=== PATIENT | female | born 1955 | race Caucasian/White ===

== ENCOUNTER → 2018-04-18 10:13 | Outpatient (CLI) | payer BC, MEDICARE, SELFPAY ==
[2018-04-18 10:45] LABS: Basophils % 0.4 % (0.1-2.0); Eosinophils # 0.1 K/mm3 (0.0-0.4); Eosinophils % 1.2 % (0.1-12.0); Hemoglobin 14.1 g/dL (12.2-16.2); Lymphocytes # 1.3 K/mm3 (0.7-4.5); Lymphocytes % 19.5 % (10-50); Mean Corpuscular HGB Conc 32.9 g/dL (31.8-35.4); Mean Corpuscular Hemoglobin 31.4 pg (27.0-31.2); Mean Corpuscular Volume 95.4 fl (81-99); Monocytes # 0.4 K/mm3 (0.1-1.0); Monocytes % 5.5 % (1.7-9.3); Neutrophils # 4.8 K/mm3 (1.8-7.8); Neutrophils % 73.4 % (37.0-80.0); Platelet Count 285 K/mm3 (142-424); Red Cell Distribution Width 13.8 % (11.5-17.5); White Blood Count 6.6 K/mm3 (4.8-10.8)
--- NOTE | 2018-04-18 11:08 | CT_ITS ---
CT head/brain w con HISTORY: Left-sided weakness for one month, the a ITS.REASON: ISCHEMIC STROKE ORDERING PHYSICIAN: Freddy Jackson MD PATIENT AGE: 63 years COMPARISON: None TECHNIQUE: Axial images obtained following the intravenous administration 100 mL of Isovue 300 contrast. Brain and bone windows reviewed. All CT scans at the facility use one or more dose reduction, viz: automated exposure control, ma/kV adjustment per patient size (including targeted exams where dose is matched to indication, i.e. head), or iterative reconstruction technique. FINDINGS: Unenhanced exam was not performed. Only post enhanced exam was performed. Small areas of hemorrhage could therefore be obscured and not detected on the post enhanced exam only. No enhancing lesions are evident. No areas of territorial infarction apparent. No midline shift, mass effect or hydrocephalus. No obvious intra or extra-axial hemorrhage. No calvarial abnormality. No sinus air-fluid level or mastoid effusion IMPRESSION: No acute intracranial findings on this post enhanced exam
[2018-04-18 11:26] LABS: Anion Gap 11.4 mEq/L (5-15); Blood Urea Nitrogen 11 mg/dL (7-18); Carbon Dioxide 28 mmol/L (21.0-32.0); Chloride 99 mmol/L (98-107); Creatinine,Serum 0.77 mg/dL (0.55-1.02); Estimated Glomerular Filt Rate 76 ml/min (>60); GFR (African American) 92 ML/MIN (>60); Glucose 101 mg/dL (74-106); Potassium 4.4 mmoL/L (3.5-5.1); Sodium 134 mmol/L (136-145)
[2018-04-18 11:27] LABS: Alanine Aminotransferase 28 U/L (12-78); Albumin Level 4.2 gm/dL (3.4-5.0); Albumin/Globulin Ratio 1.4 (1.1-1.8); Alkaline Phosphatase 74 U/L (46-116); Aspartate Amino Transferase 15 U/L (15-37); Bilirubin,Total 0.7 mg/dL (0.2-1.0); Calcium 8.7 mg/dL (8.5-10.1); Chol/HDL Ratio 2.4 (1-3.5); Cholesterol 141 mg/dL (140-200); Globulin 3.1 gm/dl (1.3-3.2); HDL Cholesterol 59 mg/dL (29-89); LDL Cholesterol 68 mg/dL (0-130); Total Protein,Serum 7.3 gm/dL (6.4-8.2); Triglycerides 72 mg/dL (30-200); VLDL Cholesterol 14 mg/dL (0-40)
[2018-04-18 11:28] LABS: Thyroid Stimulating Hormone 0.72 uIU/ml (0.358-3.740); Triiodothryronine (T3) Uptake 38 % (31-39)
[2018-04-18 11:35] LABS: Free Thyroxine Index 3.2 ug/dL (5.93-13.13); T4 (Thyroxine) 8.4 ug/dl (4.7-13.3)
[2018-04-18 12:20] LABS: Erythrocyte Sedimentation Rate 6 mm/hr (0-30)
[2018-04-19 21:55] LABS: Vitamin B12 551 pg/mL (232-1245); Vitamin D 25 Hydroxy 15.4 ng/mL (30.0-100.0)
== END ==
PROVIDERS: Visit Provider Internal Medicine Adolescent Medicine
DX: I63.9 Cerebral infarction, unspecified (principal); I42.9 Cardiomyopathy, unspecified
CPT/HCPCS: 36415; 70460; 80053; 80061; 82607; 82652; 84436; 84443; 84479; 85025; 85651; Q9967

== ENCOUNTER → 2018-09-24 12:53 | Outpatient (CLI) | payer BC, MEDICARE, SELFPAY ==
[2018-09-24 13:16] LABS: Basophils % 0.5 % (0.1-2.0); Eosinophils # 0.1 K/mm3 (0.0-0.4); Eosinophils % 1.4 % (0.1-12.0); Hematocrit 37.1 % (37.0-47.0); Hemoglobin 12.4 g/dL (12.2-16.2); Lymphocytes # 1.2 K/mm3 (0.7-4.5); Mean Corpuscular HGB Conc 33.4 g/dL (31.8-35.4); Mean Corpuscular Hemoglobin 29.4 pg (27.0-31.2); Mean Platelet Volume 6.8 fl (7.4-10.4); Monocytes # 0.3 K/mm3 (0.1-1.0); Neutrophils # 2.9 K/mm3 (1.8-7.8); Neutrophils % 65.1 % (37.0-80.0); Platelet Count 263 K/mm3 (142-424); Red Blood Count 4.21 M/mm3 (4.20-5.40); Red Cell Distribution Width 13.7 % (11.5-17.5); White Blood Count 4.5 K/mm3 (4.8-10.8)
[2018-09-24 14:39] LABS: Alanine Aminotransferase 28 U/L (12-78); Albumin Level 4.2 gm/dL (3.4-5.0); Albumin/Globulin Ratio 1.4 (1.1-1.8); Alkaline Phosphatase 61 U/L (46-116); Anion Gap 13.1 mEq/L (5-15); Aspartate Amino Transferase 17 U/L (15-37); Bilirubin,Total 0.5 mg/dL (0.2-1.0); Blood Urea Nitrogen 10 mg/dL (7-18); Calcium 8.9 mg/dL (8.5-10.1); Carbon Dioxide 26 mmol/L (21.0-32.0); Chloride 98 mmol/L (98-107); Chol/HDL Ratio 4.1 (1-3.5); Cholesterol 271 mg/dL (140-200); Creatine Kinase 100 U/L (26-192); Creatinine,Serum 0.67 mg/dL (0.55-1.02); Estimated Glomerular Filt Rate 89 ml/min (>60); Free Thyroxine Index 2.9 ug/dL (5.93-13.13); GFR (African American) 108 ML/MIN (>60); Globulin 2.9 gm/dl (1.3-3.2); Glucose 97 mg/dL (74-106); HDL Cholesterol 66 mg/dL (29-89); LDL Cholesterol 187 mg/dL (0-130); Magnesium 2.1 mg/dL (1.4-2.2); Potassium 4.1 mmoL/L (3.5-5.1); Sodium 133 mmol/L (136-145); T4 (Thyroxine) 8.4 ug/dl (4.7-13.3); Total Protein,Serum 7.1 gm/dL (6.4-8.2); Triglycerides 92 mg/dL (30-200); Triiodothryronine (T3) Uptake 34 % (31-39); VLDL Cholesterol 18 mg/dL (0-40)
[2018-09-24 16:23] LABS: Hemoglobin A1C 5.1 % (0.0-7.0)
[2018-09-26 17:48] LABS: Vitamin D 25 Hydroxy 46.7 ng/mL (30.0-100.0)
[2018-09-26 17:50] LABS: Vitamin B12 368 pg/mL (232-1245)
== END ==
PROVIDERS: Visit Provider Internal Medicine Adolescent Medicine
DX: J45.20 Mild intermittent asthma, uncomplicated (principal); I10 Essential (primary) hypertension; M79.10 Myalgia, unspecified site; Z86.39 Personal history of other endocrine, nutritional and metabolic disease
CPT/HCPCS: 36415; 80053; 80061; 82550; 82607; 82652; 83036; 83735; 84436; 84443; 84479; 85025

== ENCOUNTER → 2018-10-22 13:28 | Outpatient (CLI) | payer BC, MEDICARE, SELFPAY ==
[2018-10-22 15:41] LABS: Free Thyroxine Index 2.8 ug/dL (5.93-13.13); Thyroid Stimulating Hormone 0.86 uIU/ml (0.358-3.740); Triiodothryronine (T3) Uptake 35 % (31-39)
[2018-10-24 17:12] LABS: Thyroglobulin Level <1.0 IU/mL (0.0-0.9); Thyroid Peroxidase Antibodies 6 IU/mL (0-34)
== END ==
PROVIDERS: Visit Provider Internal Medicine Adolescent Medicine
DX: L65.9 Nonscarring hair loss, unspecified (principal)
CPT/HCPCS: 36415; 84436; 84443; 84479; 86376; 86800

== ENCOUNTER → 2018-12-17 17:12 | Outpatient (CLI) | payer BC, MEDICARE, SELFPAY ==
--- NOTE | 2018-12-17 17:26 | XR_ITS ---
PROCEDURE: XR HIP BI W PEL1V CLINICAL INDICATION: Low back pain, hip pain COMPARISON: No exams were available for comparison FINDINGS: No fracture or dislocation. No lytic or blastic change. Minimal bony hypertrophic changes are present at the greater trochanter on the left. No significant degenerative change IMPRESSION: Negative pelvis and bilateral hips Dictated by: Misbah Erwin MD 12/17/2018 18:36 <Electronically signed by Misbah Erwin MD in [place]> 12/17/2018 18:36
--- NOTE | 2018-12-17 17:26 | XR_ITS ---
PROCEDURE: XR LUMBAR SPINE MIN 4V CLINICAL INDICATION: Low back pain COMPARISON: No exams were available for comparison FINDINGS: Minimal thoracolumbar curvature convex right. Prior posterior fusion with interpedicular screws and connecting rods at L4 and L5 with interspace device at L4-L5. Mild degenerative disc disease L1-L2 L2-L3 L3-L4 and L5-S1. 8 mm anterolisthesis of L5 on S1. No acute fracture. No lytic or blastic change. There are facet arthritic changes at L5-S1 incidental vascular calcification noted of the aorta. IMPRESSION: Postsurgical and degenerative changes as described above Dictated by: Misbah Erwin MD 12/17/2018 18:37 <Electronically signed by Misbah Erwin MD in [facility]> 12/17/2018 18:37
--- NOTE | 2018-12-17 17:27 | XR_ITS ---
PROCEDURE: XR SACROILIAC JOINT BI MIN 3V CLINICAL INDICATION: FALL BACK IN OCTOBER C/O RT HIP PAIN Pain COMPARISON: No exams were available for comparison FINDINGS: The SI joints have an unremarkable appearance. No fusion lysis or sclerosis evident. No significant degenerative change IMPRESSION: . unremarkable SI joints Dictated by: Misbah Erwin MD 12/17/2018 18:33 <Electronically signed by Misbah Erwin MD in [facility]> 12/17/2018 18:33
== END ==
PROVIDERS: PCP Internal Medicine Adolescent Medicine; Visit Provider Internal Medicine Adolescent Medicine
DX: M53.3 Sacrococcygeal disorders, not elsewhere classified (principal); M25.552 Pain in left hip; M25.551 Pain in right hip; M54.5 Low back pain
CPT/HCPCS: 72110; 72202; 73521

== ENCOUNTER → 2018-12-29 13:31 | Outpatient (POV) | payer BC, MEDICARE, SELFPAY ==
[2018-12-29 14:11] VITALS: BP 169/85; PULSE 85; RESP 18; O2SAT 98; BMI 33.8
--- NOTE | 2018-12-30 13:00 | [facility]H.PMCON ---
Assessment and Plan (1) Degenerative joint disease (DJD) of lumbar spine Current visit: Yes Status: Acute Category: Medical Code(s): M47.816 - Spondylosis without myelopathy or radiculopathy, lumbar region - Assessment and plan all Dx Assessment and Plan for all problems:: We will schedule an L4-L5 lumbar epidural steroid injection given the patient's symptomology I believe it would be beneficial. I will follow-up with the patient after injection reassess her symptoms at that time she is not on any anticoagulation therapy or has any active infections. Patient's been instructed to call the office if she has any issues prior to her next appointment. Dr. Louie has reviewed this note and agrees with this plan of care. This note was dictated using voice recognition software and may contain errors or omissions HPI - Data of Consult Consult date: 12/29/18 Requesting Physician: Brigitte Taylor APRN Primary Care Provider: Freddy Jackson MD - Consult Narrative Reason for consult: Back pain History of present illness: Ms. Cedillo is a 63 year old female who presents for consultation in regards to her neck and low back pain. Patient states that lying flat and turning her head side to side increase her pain. She has numbness and tingling in her right leg. Patient had chiropractic therapy and physical therapy with moderate relief. She has tried and failed Motrin/baclofen/naproxen tried sertraline. Patient is interested in injective therapy. Patient rates her pain a 5 out of 10 today. CC: Brigitte Taylor APRN [facility] History I have reviewed the patient's past medical history: Yes Medical History: Reports:: Cardiomyopathy, Congestive Heart Failure, Diabetes Mellitus Type 2, Internal Pacemaker, Palpitations Denies:: Cancer, MRSA *Have you ever received a pneumonia vaccine?: Yes *Have you received a flu vaccine this season?: Yes Other Surgeries: Yes: Hysterectomy-Total, Pacemaker Amputation: No - *Social History Smoking Status: Never smoker Alcohol Intake: never *Occupational Status:: other Housing: house Household Members: other *Travel in the last 8 weeks: None Family Hx:: Cancer, Diabetes, Stroke Review of Systems - Review of Systems ROS General: no recent weight change, no fever, no sleep disturbances Respiratory: no cough, no shortness of air, no recurring pulmonary infections Cardiovascular/Peripheral Vascular: No chest pain, No palpitations, no edema, no shortness of breath. Gastrointestinal: no incontinence, normal bowel movements reported Genitourinary: no incontinence Musculoskeletal: Back pain, leg pain Psychiatric: normal mood/ affect Neurological: [denies weakness in extremities], [denies balance issues] Objective Vital signs: Pulse Resp BP Pulse Ox 85 18 169/85 H 98 12/29/18 14:11 12/29/18 14:11 12/29/18 14:11 12/29/18 14:11 Narrative: Physical Exam General: Alert and oriented x3, no acute distress, pleasant and cooperative, [on room air] Lungs: Resps E/U, Symmetrical chest expansion, Eyes: PERRL Musculoskeletal: Flexion and extension of lumbar spine somewhat guarded secondary to pain, deep tendon reflexes normal, strength in upper and lower extremities [5/5], antalgic gait noted Neurological: speech clear, switchboard manager equal, no gross sensory deficits Opioid Risk Tool - Opioid Risk Tool-Female Family hx alcohol abuse: N Family hx illegal drugs: N Family hx rx drug abuse: N Personal hx alcohol abuse: N Personal hx illegal drugs: N Personal hx rx drug abuse: N Age: 45+ Hx of sexual abuse: N Mental health issues-ADD,OCD,Bipolar, etc: N Hx of depression: Y Female Risk Score: 1
--- NOTE | 2018-12-30 13:03 | P.CONS_ITS ---
Assessment and Plan (1) Degenerative joint disease (DJD) of lumbar spine Current visit: Yes Status: Acute Category: Medical Code(s): M47.816 - Spondylosis without myelopathy or radiculopathy, lumbar region - Assessment and plan all Dx Assessment and Plan for all problems:: We will schedule an L4-L5 lumbar epidural steroid injection given the patient's symptomology I believe it would be beneficial. I will follow-up with the patient after injection reassess her symptoms at that time she is not on any anticoagulation therapy or has any active infections. Patient's been instructed to call the office if she has any issues prior to her next appointment. Dr. Louie has reviewed this note and agrees with this plan of care. This note was dictated using voice recognition software and may contain errors or omissions HPI - Data of Consult Consult date: 12/29/18 Requesting Physician: Brigitte Taylor APRN Primary Care Provider: Freddy Jackson MD - Consult Narrative Reason for consult: Back pain History of present illness: Ms. Cedillo is a 63 year old female who presents for consultation in regards to her neck and low back pain. Patient states that lying flat and turning her head side to side increase her pain. She has numbness and tingling in her right leg. Patient had chiropractic therapy and physical therapy with moderate relief. She has tried and failed Motrin/baclofen/naproxen tried sertraline. Patient is interested in injective therapy. Patient rates her pain a 5 out of 10 today. CC: Brigitte Taylor APRN [facility] History I have reviewed the patient's past medical history: Yes Medical History: Reports:: Cardiomyopathy, Congestive Heart Failure, Diabetes Mellitus Type 2, Internal Pacemaker, Palpitations Denies:: Cancer, MRSA *Have you ever received a pneumonia vaccine?: Yes *Have you received a flu vaccine this season?: Yes Other Surgeries: Yes: Hysterectomy-Total, Pacemaker Amputation: No - *Social History Smoking Status: Never smoker Alcohol Intake: never *Occupational Status:: other Housing: house Household Members: other *Travel in the last 8 weeks: None Family Hx:: Cancer, Diabetes, Stroke Review of Systems - Review of Systems ROS General: no recent weight change, no fever, no sleep disturbances Respiratory: no cough, no shortness of air, no recurring pulmonary infections Cardiovascular/Peripheral Vascular: No chest pain, No palpitations, no edema, no shortness of breath. Gastrointestinal: no incontinence, normal bowel movements reported Genitourinary: no incontinence Musculoskeletal: Back pain, leg pain Psychiatric: normal mood/ affect Neurological: [denies weakness in extremities], [denies balance issues] Objective Vital signs: Pulse Resp BP Pulse Ox 85 18 169/85 H 98 12/29/18 14:11 12/29/18 14:11 12/29/18 14:11 12/29/18 14:11 Narrative: Physical Exam General: Alert and oriented x3, no acute distress, pleasant and cooperative, [on room air] Lungs: Resps E/U, Symmetrical chest expansion, Eyes: PERRL Musculoskeletal: Flexion and extension of lumbar spine somewhat guarded secondary to pain, deep tendon reflexes normal, strength in upper and lower extremities [5/5], antalgic gait noted Neurological: speech clear, helicopter technician equal, no gross sensory deficits Opioid Risk Tool - Opioid Risk Tool-Female Family hx alcohol abuse: N Family hx i
== END ==
PROVIDERS: PCP Internal Medicine Adolescent Medicine; Visit Provider Clinical Nurse Specialist Family Health
DX: M47.816 Spondylosis without myelopathy or radiculopathy, lumbar region (principal)
CPT/HCPCS: 99202

== ENCOUNTER → 2019-03-25 17:00 | Outpatient (CLI) | payer BC, MEDICARE, SELFPAY ==
[2019-03-25 17:22] LABS: Basophils % 0.5 % (0.1-2.0); Eosinophils # 0.2 K/mm3 (0.0-0.4); Eosinophils % 3.1 % (0.1-12.0); Hematocrit 40.6 % (37.0-47.0); Hemoglobin 13.3 g/dL (12.2-16.2); Lymphocytes # 1.6 K/mm3 (0.7-4.5); Lymphocytes % 33.6 % (10-50); Mean Corpuscular HGB Conc 32.7 g/dL (31.8-35.4); Mean Corpuscular Hemoglobin 31.1 pg (27.0-31.2); Mean Platelet Volume 8.1 fl (7.4-10.4); Monocytes # 0.3 K/mm3 (0.1-1.0); Monocytes % 6.8 % (1.7-9.3); Neutrophils # 2.7 K/mm3 (1.8-7.8); Neutrophils % 56.1 % (37.0-80.0); Platelet Count 283 K/mm3 (142-424); Red Blood Count 4.27 M/mm3 (4.20-5.40); Red Cell Distribution Width 13.7 % (11.5-17.5); White Blood Count 4.7 K/mm3 (4.8-10.8)
[2019-03-25 19:54] LABS: Alanine Aminotransferase 23 U/L (12-78); Albumin Level 4.2 gm/dL (3.4-5.0); Albumin/Globulin Ratio 1.4 (1.1-1.8); Alkaline Phosphatase 65 U/L (46-116); Anion Gap 12.8 mEq/L (5-15); Aspartate Amino Transferase 11 U/L (15-37); Bilirubin,Total 0.3 mg/dL (0.2-1.0); Blood Urea Nitrogen 10 mg/dL (7-18); Calcium 8.7 mg/dL (8.5-10.1); Carbon Dioxide 29 mmol/L (21.0-32.0); Chloride 105 mmol/L (98-107); Chol/HDL Ratio 4.2 (1-3.5); Cholesterol 268 mg/dL (140-200); Creatinine,Serum 0.62 mg/dL (0.55-1.02); Estimated Glomerular Filt Rate 98 ml/min (>60); Ferritin 16 ng/mL (8-388); GFR (African American) 118 ML/MIN (>60); Glucose 85 mg/dL (74-106); HDL Cholesterol 64 mg/dL (29-89); LDL Cholesterol 179 mg/dL (0-130); Potassium 3.8 mmoL/L (3.5-5.1); Sodium 143 mmol/L (136-145); Total Protein,Serum 7.2 gm/dL (6.4-8.2); Triglycerides 123 mg/dL (30-200); VLDL Cholesterol 25 mg/dL (0-40)
[2019-03-27 11:39] LABS: Vitamin D 25 Hydroxy 25.8 ng/mL (30.0-100.0)
== END ==
PROVIDERS: Visit Provider Internal Medicine Adolescent Medicine
DX: E78.5 Hyperlipidemia, unspecified (principal); E55.9 Vitamin D deficiency, unspecified; G25.81 Restless legs syndrome
CPT/HCPCS: 36415; 80053; 80061; 82652; 82728; 85025

== ENCOUNTER → 2019-05-26 13:02 | Outpatient (POV) | payer BC, MEDICARE, SELFPAY | PROVIDERS: Visit Provider Dermatology | DX: Z00.00 Encounter for general adult medical examination without abnormal findings (principal) ==

== ENCOUNTER → 2019-11-04 11:24 | Outpatient (CLI) | payer BC, MEDICARE, SELFPAY ==
[2019-11-04 12:36] LABS: Chloride 101 mmol/L (98-107); Sodium 137 mmol/L (136-145)
[2019-11-04 12:39] LABS: Blood Urea Nitrogen 15 mg/dl (7-17); Carbon Dioxide 29 mmol/L (22.0-30.0); Estimated Glomerular Filt Rate 101 ml/min (>60); GFR (African American) 123 ML/MIN (>60)
[2019-11-04 12:40] LABS: Calcium 9.5 mg/dl (8.4-10.2); Glucose 98 mg/dl (74-100)
[2019-11-04 13:26] LABS: Hemoglobin A1C 5.3 % (4.0-6.0)
[2019-11-04 15:45] LABS: Chol/HDL Ratio 4.1 (1-3.5); Cholesterol 269 mg/dl (140-200); HDL Cholesterol 66 mg/dl (40-60); Triglycerides 73 mg/dl (30-150); VLDL Cholesterol 15 mg/dL (0-40)
[2019-11-04 15:55] LABS: Direct LDL Cholesterol 174.19 mg/dL (100-129)
== END ==
PROVIDERS: Visit Provider Internal Medicine Adolescent Medicine
DX: I10 Essential (primary) hypertension (principal); R60.9 Edema, unspecified; E78.5 Hyperlipidemia, unspecified; Z86.39 Personal history of other endocrine, nutritional and metabolic disease
CPT/HCPCS: 36415; 80048; 80061; 83036

== ENCOUNTER → 2020-05-11 16:10 | Outpatient (CLI) | payer BC, MEDICARE, SELFPAY ==
[2020-05-11 17:02] LABS: Chloride 100 mmol/L (98-107); Potassium 4.1 mmoL/L (3.5-5.1); Sodium 138 mmol/L (136-145)
[2020-05-11 17:04] LABS: Alanine Aminotransferase 25 U/L (12-78); Albumin Level 4.8 g/dl (3.5-5.0); Alkaline Phosphatase 66 U/L (38-126); Aspartate Amino Transferase 29 U/L (14-36); Bilirubin,Total 0.6 mg/dl (0.2-1.3); Blood Urea Nitrogen 12 mg/dl (7-17); Estimated Glomerular Filt Rate 85 ml/min (>60); GFR (African American) 102 ML/MIN (>60)
[2020-05-11 17:05] LABS: Albumin/Globulin Ratio 1.7 (1.1-1.8); Anion Gap 10.1 mEq/L (5-15); Carbon Dioxide 32 mmol/L (22.0-30.0); Chol/HDL Ratio 3.4 (1-3.5); Cholesterol 253 mg/dl (140-200); Globulin 2.8 g/dL (1.3-3.2); Glucose 101 mg/dl (74-100); HDL Cholesterol 75 mg/dl (40-60); Total Protein,Serum 7.6 g/dl (6.3-8.2); Triglycerides 66 mg/dl (30-150); VLDL Cholesterol 13 mg/dL (0-40)
[2020-05-11 17:10] LABS: Basophils % 0.6 % (0.1-2.0); Eosinophils # 0.1 K/mm3 (0.0-0.4); Eosinophils % 1.3 % (0.1-12.0); Hematocrit 42.1 % (37.0-47.0); Hemoglobin 13.8 g/dL (12.2-16.2); Lymphocytes # 1.3 K/mm3 (0.7-4.5); Lymphocytes % 27.5 % (10-50); Mean Corpuscular HGB Conc 32.9 g/dL (31.8-35.4); Mean Corpuscular Hemoglobin 30.4 pg (27.0-31.2); Mean Corpuscular Volume 92.5 fl (81-99); Mean Platelet Volume 7.5 fl (7.4-10.4); Monocytes # 0.4 K/mm3 (0.1-1.0); Monocytes % 7.6 % (1.7-9.3); Neutrophils # 2.9 K/mm3 (1.8-7.8); Neutrophils % 63.1 % (37.0-80.0); Platelet Count 281 K/mm3 (142-424); Red Blood Count 4.55 M/mm3 (4.20-5.40); Red Cell Distribution Width 14.3 % (11.5-17.5); White Blood Count 4.6 K/mm3 (4.8-10.8)
[2020-05-11 17:16] LABS: Direct LDL Cholesterol 145.15 mg/dL (100-129)
[2020-05-11 17:36] LABS: Thyroid Stimulating Hormone 1.24 uIU/mL (0.465-4.68)
[2020-05-11 17:40] LABS: Ferritin 9.07 ng/ml (11.1-264)
== END ==
PROVIDERS: Visit Provider Internal Medicine Adolescent Medicine
DX: I42.9 Cardiomyopathy, unspecified (principal); I10 Essential (primary) hypertension; G25.81 Restless legs syndrome
CPT/HCPCS: 36415; 80053; 80061; 82728; 84443; 85025

== ENCOUNTER → 2020-07-14 12:53 | Outpatient (CLI) | payer BC, MEDICARE, SELFPAY ==
[2020-07-14 13:28] LABS: Basophils % 0.2 % (0.1-2.0); Eosinophils # 0.1 K/mm3 (0.0-0.4); Hematocrit 38.6 % (37.0-47.0); Hemoglobin 13.1 g/dL (12.2-16.2); Lymphocytes # 1.3 K/mm3 (0.7-4.5); Lymphocytes % 23.8 % (10-50); Mean Corpuscular Hemoglobin 30.4 pg (27.0-31.2); Mean Corpuscular Volume 89.5 fl (81-99); Mean Platelet Volume 7.8 fl (7.4-10.4); Monocytes # 0.4 K/mm3 (0.1-1.0); Monocytes % 7.3 % (1.7-9.3); Neutrophils # 3.6 K/mm3 (1.8-7.8); Neutrophils % 67.7 % (37.0-80.0); Platelet Count 239 K/mm3 (142-424); Red Blood Count 4.31 M/mm3 (4.20-5.40); White Blood Count 5.3 K/mm3 (4.8-10.8)
[2020-07-14 14:26] LABS: Alanine Aminotransferase 21 U/L (12-78); Albumin Level 4.7 g/dl (3.5-5.0); Alkaline Phosphatase 61 U/L (38-126); Anion Gap 10.9 mEq/L (5-15); Aspartate Amino Transferase 27 U/L (14-36); Bilirubin,Total 0.5 mg/dl (0.2-1.3); Blood Urea Nitrogen 19 mg/dl (7-17); Calcium 9.7 mg/dl (8.4-10.2); Carbon Dioxide 29 mmol/L (22.0-30.0); Chloride 101 mmol/L (98-107); Chol/HDL Ratio 3.1 (1-3.5); Cholesterol 190 mg/dl (140-200); Estimated Glomerular Filt Rate 85 ml/min (>60); GFR (African American) 102 ML/MIN (>60); Globulin 2.4 g/dL (1.3-3.2); Glucose 96 mg/dl (74-100); HDL Cholesterol 61 mg/dl (40-60); Magnesium 2.1 mg/dl (1.6-2.3); Potassium 3.9 mmoL/L (3.5-5.1); Sodium 137 mmol/L (136-145); Total Protein,Serum 7.1 g/dl (6.3-8.2); Triglycerides 114 mg/dl (30-150); VLDL Cholesterol 23 mg/dL (0-40)
[2020-07-14 14:37] LABS: Direct LDL Cholesterol 97.12 mg/dL (100-129)
[2020-07-14 14:57] LABS: Thyroid Stimulating Hormone 1.38 uIU/mL (0.465-4.68)
[2020-07-14 15:15] LABS: Vitamin B12 361 pg/mL (239-931)
[2020-07-18 15:21] LABS: Sjogren's Anti-SS-A <0.2 AI (0.0-0.9)
[2020-07-18 18:32] LABS: Sjogren's Anti-SS-B <0.2 AI (0.0-0.9)
== END ==
PROVIDERS: Visit Provider Internal Medicine Adolescent Medicine
DX: I42.9 Cardiomyopathy, unspecified (principal); I10 Essential (primary) hypertension; E78.5 Hyperlipidemia, unspecified; E55.9 Vitamin D deficiency, unspecified; K11.7 Disturbances of salivary secretion
CPT/HCPCS: 36415; 80053; 80061; 82306; 82607; 83735; 84443; 85025; 86235